=== PATIENT | male | born 1965 | race Caucasian/White ===

== ENCOUNTER 2024-04-27 20:38 | Emergency (ER) | payer OTHER ==
[~2024-04-27] VITALS: Ht 167.6 cm; Wt 99.8 kg
[2024-04-27] MEDS ORDERED: PRED50TA PO (22:23)
[2024-04-27] MEDS ORDERED: ACYC-108 PO (22:23)
[2024-04-27] MEDS: ACYCLOVIR 400 MG TABLET PO ONE (22:34)
[2024-04-27] MEDS ORDERED: ACYCLOVIR 200 MG CAPSULE ONE (22:34)
[2024-04-27] MEDS ORDERED: predniSONE 50 MG TABLET ONE (22:34)
[2024-04-27] MEDS: predniSONE 50 MG TABLET PO ONE (22:34)
[2024-04-27 22:44] VITALS: BP 146/77; O2SAT 99
== END 2024-04-27 22:52 | disposition home or self-care (01) ==
LOC: ER 20:38
DX: B02.9 Zoster without complications (principal); E11.9 Type 2 diabetes mellitus without complications; E78.5 Hyperlipidemia, unspecified; I10 Essential (primary) hypertension; Z79.52 Long term (current) use of systemic steroids
CPT/HCPCS: 99283; J7512; A4606; A4663

== ENCOUNTER 2024-07-23 22:55 | Emergency (ER) | payer OTHER ==
[~2024-07-23] VITALS: Ht 167.6 cm; Wt 97.5 kg
[~2024-07-23 22:55] MED LIST: ACYC-108 PO; PRED50TA PO
[2024-07-23] MEDS ORDERED: FLUORESCEIN SODIUM 1 MG STRIP ONE (23:20)
[2024-07-23] MEDS ORDERED: TETRACAINE HCL 0.5% OPHT DROP 2 ML BOTTLE ONE (23:20)
[2024-07-23] MEDS: FLUORESCEIN SODIUM 1 MG STRIP OP ONE (23:26)
[2024-07-23] MEDS: TETRACAINE HCL 0.5% OPHT DROP 2 ML BOTTLE OP ONE (23:26)
[2024-07-23] MEDS ORDERED: GENT5DRO4 EACHEYE (23:34)
[2024-07-23] MEDS ORDERED: NAPR-1192 PO (23:34)
[2024-07-23 23:39] VITALS: BP 150/80; O2SAT 98
== END 2024-07-23 23:39 | disposition home or self-care (01) ==
LOC: ER 22:55
DX: S05.01XA Injury of conjunctiva and corneal abrasion without foreign body, right eye, initial encounter (principal); E78.5 Hyperlipidemia, unspecified; Z79.52 Long term (current) use of systemic steroids; W45.8XXA Other foreign body or object entering through skin, initial encounter; Y93.89 Activity, other specified; Y92.89 Other specified places as the place of occurrence of the external cause; Y99.8 Other external cause status
CPT/HCPCS: A4606; A4663